=== PATIENT | female | born 1945 | race Caucasian/White ===

== ENCOUNTER 2024-06-30 10:29 | Outpatient (CLI) | payer OTHER | END 2024-06-30 10:32 | disposition home or self-care (01) | LOC: SONOGRAMA 10:29 | PROVIDERS: ATTEND Pathology Anatomic Pathology & Clinical Pathology | DX: C07 Malignant neoplasm of parotid gland (principal); C08.9 Malignant neoplasm of major salivary gland, unspecified; E04.2 Nontoxic multinodular goiter; D44.0 Neoplasm of uncertain behavior of thyroid gland ==